=== PATIENT | female | born 1975 | race Two or more races ===

== ENCOUNTER 2019-12-05 19:24 | Outpatient (CLI) | payer OTHER | END 2019-12-05 19:25 | disposition home or self-care (01) | LOC: COV 19:24 | PROVIDERS: ATTEND Family Medicine | DX: R05 Cough (principal); M79.10 Myalgia, unspecified site; R53.83 Other fatigue; J02.9 Acute pharyngitis, unspecified | CPT/HCPCS: 81599 ==

== ENCOUNTER 2020-07-10 14:40 | Outpatient (CLI) | payer OTHER ==
--- NOTE | 2020-07-10 16:42 | SLEEP CARE CONSULTATION ---
Information from patient questionnaire entered by Rosanne Mcdonnell. I have reviewed and concur with the information entered by Rosanne Mcdonnell. This document represents the service I personally performed and the decisions made by me, Gavin Lerner MD, [facility]. History of Present Illness Service Date and Time: 07/10/2020 1440 Reason for Visit: New patient Chief Complaint: reports: Excessive daytime sleepiness, Fatigue Date of Onset: about 6 months Usual bedtime: 9:30 - 10 pm Time it takes to fall asleep: not long at all Snores at night: Yes Observed to quit breathing while asleep: No Sleeps alone due to snoring: No Number of times waking at night: 2-3 Reasons for waking at night: reports: Snoring, Gasping for air Toss, Turn, or Twitch while sleeping: Yes Recalls having dreams: Yes Usually gets out of bed at: 6-6:30 am Feels refreshed in the morning: No Morning headache: Yes Sleepy or fatigued during the day: Yes Ever fallen asleep while driving: No Takes day naps: No Prior sleep studies: No Additional HPI information: I had the pleasure of seeing Ms. Jeter today regarding the possibility of her having a sleep disorder. As you know, she is a 45 year old lady who complains of loud snore and fatigue. The patient tells me that she normally goes to bed around 10 pm - midnight, and it takes her approximately 10 - 20 minutes to fall asleep. She has been told that she snores loudly and irregularly at night. She has never been observed to stop breathing in her sleep. Her spouse can still sleep in the same bed. He uses a CPAP. She can recall waking up on the average of 2 - 3 times during the night. Most of the time she wakes up because of her own snoring, choking, and having to gasp for air. There is a lot of tossing and turning in her sleep. No somniloquy (sleep talking) or somnambulism (sleep walking). Generally she can recall having dreams. In the morning she usually gets up out of the bed around 6 - 8 a.m. not feeling refreshed nor rested. She occasionally has a morning headache that goes away within an hour. During the day she complains of feeling sleepy and fatigued. However, her score on [place] Sleepiness Scale is 4 out of 24. She has never fallen asleep while driving nor has had any accident due to sleepiness. She usually takes naps during the day. She has never had sleep paralysis, experienced cataplexy or symptoms of restless leg syndrome. She denies having impaired concentration during the day. 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 Patient is and lives in [place]. Have you smoked in the past 12 months: No Cigarettes per day (20/pack): 20 Years of smokin Quit date: 1998 Smoking Pack Years: 4.0 Caffeine use: Yes Caffeine amount and frequency: 1 per day Family History Family history of sleep disordered breathing: Yes (mom, brother, sister) Allergies and Home Medications Drug allergies reviewed: Yes Home medication list reviewed: Yes Review of Systems Cardiovascular: reports: high blood pressure Respiratory: denies: shortness of breath, wheeze, sputum production, chronic cough, other Gastrointestinal: denies: heartburn, difficulty swallowing, nausea, vomitting, diarrhea, abdominal pain, other Urinary: denies: incontinence, frequency, urgency, impotence, other Neurological: denies: headaches, seizure, head trauma, disorientation, speech dysfunction, gait or balance problems, fainting or unconsciousness, other Psychiatric: denies: Attention Deficit Hyperactivity, anxiety, depression, mood disorder, claustrophobia, other Ear/Nose/Throat: denies: nasal congestion, sinus problems, nose bleeds, dry mouth/throat, hoarseness, injury to nose, tonsillectomy, wisdom teeth removed, other Endocrine: denies: thyroid disease, history of goiter, sluggishness, too hot or cold, excessive thirst, increased appetite, increased urination, unexplained weakness, other Physical Exam Vital signs obtained and entered by: To minimize the risk of COVID-19 exposure, detailed exam was not performed. Height: 5 ft 2.5 in Weight: 175 lb Body Mass Index: 31.5 BMI Classification: Obese Impression and Plan IMPRESSION: 1. Obstructive Sleep Apnea-Hypopnea Syndrome, as suggested by history of loud and irregular snoring, frequent awakenings during the night, unrefreshed sleep, and daytime fatigue. Narrow oropharynx and obesity are common predisposing factors for obstructive sleep apnea-hypopnea syndrome. Pathophysiology of sleep-disordered breathing was discussed. I recommend proceeding to polysomnography to confirm the diagnosis and to assess severity. If she has significant sleep disordered breathing, a manual CPAP titration study will also be performed to find the optimal treatment pressure. I informed the patient of what the sleep studies involve and after some discussion, she would like to have a home sleep apnea test (HSAT) because it is available sooner. Plan: 1. Schedule a home sleep apnea test (HSAT). 2. Return in 1 to 2 weeks after the study to discuss results and initiate therapy Visit Type: In Office Time Spent with Patient (minutes): 15 Provider Statement: I spent 100% of the Face to Face Visit with the patient with greater than 50% spent counseling the patient and coordination of care.
== END 2020-07-10 14:41 | disposition home or self-care (01) ==
LOC: SC 14:40
PROVIDERS: ATTEND Internal Medicine Pulmonary Disease
DX: R06.83 Snoring (principal); G47.8 Other sleep disorders; R53.83 Other fatigue; E66.9 Obesity, unspecified; Z68.31 Body mass index [BMI] 31.0-31.9, adult
CPT/HCPCS: 99203; 99212

== ENCOUNTER 2020-07-14 10:18 | Outpatient (CLI) | payer OTHER ==
[2020-07-14] MEDS ORDERED: GADOBUTROL 7.5 MMOL/7.5 ML VIAL ONE (10:42)
[2020-07-14] MEDS ORDERED: GADOBUTROL 7.5 MMOL/7.5 ML VIAL IVP ONE (11:22)
--- NOTE | 2020-07-16 08:53 | MRI Report ---
PROCEDURE: Brain W/WO INDICATIONS: DIZZINESS, FATIGUE CONTRAST: IV CONTRAST: Gadavist ml: 6 TECHNIQUE: Noncontrast axial T1 spin echo, axial T2 fast spin echo, sagittal and axial FLAIR, coronal T2 fast sp in echo, axial gradient echo, axial diffusion and ADC through the brain. After the administration of contrast, axial and coronal T1 spin echo with fat saturation through the brain. COMPARISON: None. FINDINGS: Image quality: Excellent. CSF spaces: No abnormal extra axial fluid collection, mass effect, or midline shift. Normal ventricul ar caliber and position. Patent basilar cisterns. Brain: There is mild early chronic microvascular ischemic changes in the supratentorial and infratent orial white matter. The major intercranial vascular flow related signal voids are maintained. No abno rmal parenchymal or leptomeningeal enhancement. Midline structures are within normal limits. Skull an d face: Calvarial marrow is normal in signal. Orbits appear normal. Sinuses: Sinuses and mastoids appear clear. IMPRESSION: No acute finding or other abnormality to explain symptoms. Mild early chronic microvascu lar ischemic change Reviewed by: Nito Hurst MD on 07/16/2020 8:51 AM PST Approved by: Nito Hurst MD on 07/16/2020 8:51 AM PST Station ID: [id number]
== END 2020-07-14 10:19 | disposition home or self-care (01) ==
LOC: DI 10:18
PROVIDERS: ATTEND Family Medicine
DX: R42 Dizziness and giddiness (principal)
CPT/HCPCS: 70553; A9585

== ENCOUNTER 2020-07-24 13:52 | Outpatient (CLI) | payer OTHER | END 2020-07-24 13:53 | disposition home or self-care (01) | LOC: SC 13:52 | PROVIDERS: ATTEND Internal Medicine Pulmonary Disease | DX: G47.33 Obstructive sleep apnea (adult) (pediatric) (principal); R09.02 Hypoxemia | CPT/HCPCS: 95806 ==

== ENCOUNTER 2020-08-03 12:49 | Outpatient (CLI) | payer OTHER ==
--- NOTE | 2020-08-03 13:24 | SLEEP CARE CONSULTATION ---
Information from patient questionnaire entered by Rosanne Mcdonnell. I have reviewed and concur with the information entered by Rosanne Mcdonnell. This document represents the service I personally performed and the decisions made by me, Beverly Bishop ARNP. History of Present Illness Service Date and Time: 08/03/2020 1249 Initial [place] Sleepiness Scale score: 2 (in 2020) Current [place] Sleepiness Scale score: 6 Additional HPI information: FIOR MAGALLANES returns for follow up and results of the recently performed home sleep study. I explained the pathophysiology behind obstructive sleep apnea. We then spent quite a bit of time discussing different treatment options. For mild obstructive sleep apnea, surgery and oral appliance are alternatives to nasal CPAP therapy but in moderate or severe cases, nasal CPAP is the most effective and reliable treatment. Because apnea is primarily in supine position, then positional management therapy could be effective. Methods discussed such as positioning with pillows, using a T-shirt with tennis balls in the back, and shown commercial products that have a pillow format on back to prevent supine sleep. I reviewed the impact of weight changes on sleep apnea and strongly recommended losing weight. After some discussion, the patient opted to go with the nasal CPAP therapy. Nasal autoCPAP set at [id number] will be ordered with rationale explained. A manual titration study will be ordered if unable to find optimal pressure with office adjustments. I explained how CPAP machine works with sample devices [employer] Dreamstation and [employer] [id number] and what to expect when using the machine. Using CPAP every night in order to get used to it was emphasized. Patient advised to put CPAP mask on before getting into bed so as not to fall asleep without CPAP. To assist acclimation to CPAP use, it could also be used for a short time during day while reading or watching TV. The patient was instructed to call the CPAP supplier to discuss any mechanical problem that may occur. If the mask given is uncomfortable or is difficult to keep on through the night even with adjustment, contact the CPAP supplier as many will replace with another mask style if notified before 30 days. If snoring or perceives is not getting enough air or too much air from the machine, notify this office. [facility] patient education PAP tips reviewed and given to patient. Patient counseled not drink alcohol less than 4 hours before bedtime as it can increase snoring and apnea. Patient was cautioned about risks of drowsy driving until sleepiness symptoms resolve. Sleep Study - Results Type of Sleep Study: Home sleep study Prior sleep studies: No Polysomnography/Home Sleep Study results: Physician Impression: The quality of the study is good. The length of the study is adequate (> 240 minutes). Please also see the tabulated and graphic data. 1. Obstructive Sleep Apnea-Hypopnea (ICD-10 G47.33), mild, with an AHI of 10.2 /hr and lady SaO2 of 85%. During the study, the patient had 19 apneas (19 obstructive, 0 central, 0 mixed) and 35 hypopneas. The longest episode lasted 97.0 seconds. The respiratory events occurred almost exclusively during supine sleep (supine AHI was 14.1 and non-supine, 1.25). 2. Hypoxemia (ICD-10 R09.02), minimal, with the lowest oxygen saturation of 85 % and 0.9 minutes with SaO2 under 90%. Baseline oxygen saturation was normal (Average oxygen saturation was 96%). Allergies and Home Medications Drug allergies reviewed: Yes (Demerol, phenergan) Home medication list reviewed: Yes (no changes) Review of Systems Review of systems same as previous: Yes (no changes) Physical Exam Heart Rate: 72 O2 Saturation: 98 Height: 5 ft 2.5 in Weight: 150 lb Body Mass Index: 27.0 BMI Classification: Overweight Impression and Plan 1. Obstructive Sleep Apnea-Hypopnea Syndrome, mild, with lowest oxygen saturation of 85%. Obviously this is the cause of the patients symptoms of unrefreshed sleep, and excessive daytime sleepiness. Positive pressure therapy could benefit her hypertension. As mentioned above, the patient will be started on nasal autoCPAP therapy with pressure set at 4-15 cmH2O. Compliance guidelines also reviewed. A copy of compliance guidelines will be given for reference at check out. Because the apnea is more severe supine, I instructed to avoid sleeping supine using pillow positioning until able to start CPAP use. * Nasal auto CPAP therapy, pressure at 4-15 cm H2O. * Attempt to lose weight. * Avoid alcohol consumption near bedtime. * Avoid supine sleep until using CPAP. * The patient is again cautioned about driving until sleepiness completely resolves. * Return one month after CPAP obtained. I will assess response to therapy and compliance at that time. Counseling Topics: Weight loss health impact Visit Type: In Office Time Spent with Patient (minutes): 19 Provider Statement: I spent 100% of the Face to Face Visit with the patient with greater than 50% spent counseling the patient and coordination of care.
== END 2020-08-03 12:50 | disposition home or self-care (01) ==
LOC: SC 12:49
PROVIDERS: ATTEND Nurse Practitioner Family
DX: G47.33 Obstructive sleep apnea (adult) (pediatric) (principal); E66.3 Overweight; Z68.27 Body mass index [BMI] 27.0-27.9, adult
CPT/HCPCS: 99212; 99213

== ENCOUNTER 2020-10-26 11:52 | Outpatient (CLI) | payer OTHER ==
--- NOTE | 2020-10-26 12:12 | SLEEP CARE CONSULTATION ---
Information from patient questionnaire entered by Rosanne Mcdonnell. I have reviewed and concur with the information entered by Rosanne Mcdonnell. This document represents the service I personally performed and the decisions made by , Beverly Bishop ARNP. History of Present Illness Service Date and Time: 10/26/2020 1200 Previous diagnosis: Mild, Obstructive Sleep Apnea-Hypopnea Syndrome AHI: 10.2 (in 2019) Reason for follow up: first compliance Equipment type: CPAP Equipment obtained from: [facility] (got initial supplies) Mask style: Nasal (cushion) Mask brand: Respironics Backup mask available: Yes (other mask) Last cushion change: on Thursday Prior sleep studies: Yes Year and Where: 2019 - [facility] Type of Sleep Study: Home sleep study HPI additional information: FIOR MAGALLANES was diagnosed to have mild, AHI 10.2, obstructive sleep apnea- hypopnea syndrome and returns via Telehealth today for CPAP therapy first compliance follow-up. CPAP Compliance Data - Data Reviewed with Patient Average duration of nightly device use: 8 hours 7 minutes Compliance rate %: 83.3 Current pressure setting (cmH2O): 4-15 (mean 7.5, 90% avg 10.4) Humidity settin Heated hose settin Average residual AHI: 6.2 Average large leak: 35 seconds Subjective Missed days of use due to: reports: travel (for ) Patient concerns: reports: mask discomfort (changed from nasal pillows mask to cushion, other pulled her hair), nasal congestion (sometimes wakes up stuffy), dry mouth, nose, throat (mouth dryness). denies: aerophagia, air blowing in eyes, mask leak noise, condensation in mask/hose, epistaxis, other Observed to snore while using device: Yes (at times) Current pressure setting perceived as: comfortable On therapy, patient: reports: being more awake and alert during the day (tired at 6-7 pm). denies: sleeping better, awakening more refreshed, more rested overall, drowsiness while driving Initial [place] Sleepiness Scale score: 2 (in 2019) Current [place] Sleepiness Scale score: 8 Allergies and Home Medications Drug allergies reviewed: Yes (demerol, phenergan) Home medication list reviewed: Yes (no changes) Review of Systems Review of systems same as previous: Yes (no changes) Physical Exam Vital signs obtained and entered by: Telehealth visit to reduce exposure during Covid pandemic Height: 5 ft 2.5 in Impression and Plan 1. Obstructive Sleep Apnea-Hypopnea Syndrome, mild, with good treatment compliance and fair apnea control with elevated residual AHI. On CPAP therapy, the patient has better sleep quality and is more rested overall. The patients pressure will be changed to autoCPAP 8-11 cmH20 For elevation of residual AHI. Patient advised to contact me if pressure change is uncomfortable so that it can be adjusted. Goals for apnea control discussed. She has been having some mild nasal stuffiness and moderate mouth dryness with CPAP use. Her humidity is set at 3. I advised her to increase humidity to 4. Oral dryness can be reduced by adjusting humidity setting higher or heated hose lower or by adjusting both settings. Verbal instructions given on how to change humidity and heated hose settings with rationale explaining why to change. She voiced understanding and agreement with plan. Patient's apnea severity and rationale for treatment to reduce apnea, improve sleep quality and reduce cardiovascular and cerebrovascula r events was reviewed. I also reviewed the benefit of consistent device use of CPAP for hypertension. * Change auto CPAP pressure to 8-11 cmH2O * Notify me if snoring with mask or feeling that the pressure is too much or too little * Attempt to lose weight * Call this office if any problems using CPAP * Return for follow up in 1-2 months, or sooner if concerns arise Counseling Topics: Spare mask, Weight loss health impact Visit Type: Telehealth Video Video Type: VSee Patient Location: Home Location of Provider: Office Patient agrees and consents to this telehealth visit type: Yes Patient agrees to have their insurance billed: Yes Time Spent with Patient (minutes): 22 Provider Statement: I spent 100% of the Telehealth Video Call with the patient with greater than 50% spent counseling the patient and coordination of care.
== END 2020-10-26 11:53 | disposition home or self-care (01) ==
LOC: SC 11:52
PROVIDERS: ATTEND Nurse Practitioner Family
DX: G47.33 Obstructive sleep apnea (adult) (pediatric) (principal)

== ENCOUNTER 2020-11-27 13:22 | Outpatient (CLI) | payer OTHER ==
--- NOTE | 2020-11-27 13:43 | SLEEP CARE CONSULTATION ---
Information from patient questionnaire entered by Pillo Forbes. I have reviewed and concur with the information entered by Pillo Forbes. This document represents the service I personally performed and the decisions made by , Beverly Bishop ARNP. History of Present Illness Service Date and Time: 11/27/2020 1322 Previous diagnosis: Mild, Obstructive Sleep Apnea-Hypopnea Syndrome AHI: 10.2 (in 2019) Reason for follow up: one month (followup - pressure change) Equipment type: CPAP Equipment obtained from: [facility] (got initial supplies) Mask style: Nasal (cushion) Backup mask available: Yes (other mask) Last cushion change: 1 month Prior sleep studies: No Year and Where: 2019 - [facility] Type of Sleep Study: Home sleep study HPI additional information: FIOR MAGALLANES was diagnosed to have mild, AHI 10.2, obstructive sleep apnea- hypopnea syndrome and returns via telehealth visit today for CPAP therapy one month pressure change follow-up. CPAP Compliance Data - Data Reviewed with Patient Average duration of nightly device use: 8 h 41 min Compliance rate %: 100 Current pressure setting (cmH2O): 4-15 (median 6.4, avg 8.6, max 8.9) Humidity settin Heated hose settin Average residual AHI: 5.6 Average large leak: 1 min 42 sec Subjective Patient concerns: reports: mask leak noise (resolves with adjusting the mask). denies: aerophagia, mask discomfort, air blowing in eyes, condensation in mask/hose, nasal congestion, dry mouth, nose, throat, epistaxis, other Observed to snore while using device: Yes (occasional, fixing mask helps it go away) Current pressure setting perceived as: too low On therapy, patient: reports: sleeping better, awakening more refreshed. denies: being more awake and alert during the day (taking 1-2 hour nap in afternoons), more rested overall, drowsiness while driving Initial [place] Sleepiness Scale score: 2 (in 2019) Current [place] Sleepiness Scale score: 2 Allergies and Home Medications Home medication list reviewed: Yes (no changes) Review of Systems Review of systems same as previous: Yes (no changes) Physical Exam Vital signs obtained and entered by: Telehealth visit to reduce exposure during Covid pandemic Height: 5 ft 2.5 in Impression and Plan 1. Obstructive Sleep Apnea-Hypopnea Syndrome, mild, with excellent treatment compliance and fair apnea control with minimally elevated AHI. On CPAP therapy, the patient has better sleep quality and is more rested overall. She has noted some snoring when she is on her back that wakes her up. I will adjust her pressure to 8-10 cmH2O and encouraged her to sleep more on her side. She is moving to [place] in about 3 weeks. I advised her to follow up with pressure change and continued care with a sleep provider in [place]. She voiced understanding and agreement with plan of care. Patient's apnea severity and rationale for treatment to reduce apnea, improve sleep quality and reduce cardiovascular and cerebrovascular events was reviewed. I also reviewed the benefit of consistent device use of CPAP for hypertension. * Change auto CPAP pressure to 8-10 cmH2O * Notify me if snoring with mask or feeling that the pressure is too much or too little * Attempt to lose weight * Call this office if any problems using CPAP * Return for follow up in 1-2 months with new provider in [place] Counseling Topics: Spare mask, Weight loss health impact Visit Type: Telehealth Video Video Type: VSee Patient Location: Home Location of Provider: Office Patient agrees and consents to this telehealth visit type: Yes Patient agrees to have their insurance billed: Yes Time Spent with Patient (minutes): 18 Provider Statement: I spent 100% of the Telehealth Video Call with the patient with greater than 50% spent counseling the patient and coordination of care.
== END 2020-11-27 13:23 | disposition home or self-care (01) ==
LOC: SC 13:22
PROVIDERS: ATTEND Nurse Practitioner Family
DX: G47.33 Obstructive sleep apnea (adult) (pediatric) (principal)